=== PATIENT | female | born 1955 | race Caucasian/White ===

== ENCOUNTER → 2017-02-21 | Outpatient (CLI) | payer OTHER ==
[~2017-02-21] MED LIST: HYDR25CA94 PO; LORA-633 PO; LORA10TA3 PO; MELA1TAB10 PO; OMEP-110 PO
== END | disposition home or self-care (01) ==
LOC: CFH 15:51 → EDSTATUS 16:15
PROVIDERS: ATTEND Genetic Counselor, MS
DX: Z12.31 Encounter for screening mammogram for malignant neoplasm of breast (principal)
CPT/HCPCS: G0202